=== PATIENT | male | born 2000 | race African-American/Black ===

== ENCOUNTER 2019-08-19 13:20 | Inpatient (IN) | payer SELFPAY ==
[~2019-08-19] VITALS: Ht 182.9 cm; Wt 106.0 kg
[2019-08-19 14:11] LABS: COLLECTION METHOD CLEAN CATCH
[2019-08-19 14:14] LABS: HEMOGLOBIN 14.5 g/dl (12.5-16.1); MEAN CELL VOLUME 76 fl (80.0-95.0); MEAN CORPUSCULAR HEMOGLOBIN 24 pg (26.0-32.0); MEAN CORPUSCULAR HGB CONC 32 g/dl (33.0-37.0); MEAN PLATELET VOLUME 8.7 fl (7.4-10.4); PLATELET COUNT 289 K/mm3 (130-400); RED BLOOD COUNT 6.08 M/mm3 (4.20-5.60); REDCELL DISTRIBUTION WIDTH-CV 13.2 % (11.5-14.5)
[2019-08-19 14:20] LABS: MUCOUS Present /lpf; PH 6 (5-8); SQUAMOUS EPITHELIAL 0-2 /hpf; URINE APPEARANCE Clear; URINE BACTERIA None Seen /hpf; URINE BILIRUBIN Negative (NEGATIVE); URINE BLOOD Negative (NEGATIVE); URINE COLOR Yellow; URINE GLUCOSE Negative (NEGATIVE); URINE KETONE Trace (NEGATIVE); URINE LEUKOCYTE ESTERASE Negative (NEGATIVE); URINE NITRATE Negative (NEGATIVE); URINE PROTEIN(semi-quant) 2+ (NEGATIVE); URINE RBC 0-2 /hpf; URINE UROBILINOGEN >=4.0 mg/dL (NEGATIVE)
[2019-08-19 14:31] LABS: ALANINE AMINOTRANSFERASE < 6 U/L (21-72); ALBUMIN 4.2 gm/dL (3.5-5.0); ALKALINE PHOSPHATASE 55 U/L (50-136); ANION GAP 10 mmol/L (7-16); AST,SGOT 22 U/L (15-37); BAND 1 % (0-10); BILIRUBIN,TOTAL 0.9 mg/dL (0.0-1.0); BLOOD UREA NITROGEN 8 mg/dL (9-20); CALCIUM 8.9 mg/dL (8.4-10.2); CARBON DIOXIDE 27 mmol/L (22-30); CHLORIDE 95 mmol/L (98-107); CREATININE, serum 0.88 (0.66-1.25); GLUCOSE 140 mg/dL (74-106); LIPASE 38 U/L (23-300); LYMPHOCYTE 7 % (20.0-51.0); NEUTROPHILS 84 % (42.0-75.2); PLATELET ESTIMATE NORMAL (NORMAL); POTASSIUM 3.2 mmol/L (3.4-5.0); SODIUM 132 mmol/L (137-145); TOTAL PROTEIN 7.9 gm/dL (6.4-8.2)
[2019-08-19 14:32] LABS: HYPOCHROMIA 1+; MICROCYTOSIS 1+
[2019-08-19 14:46] LABS: C-REACTIVE PROTEIN 16.1 mg/dL (0.0-0.9)
[2019-08-19 17:34] VITALS: BP 126/56; PULSE 102; TEMP 99.4
--- NOTE | 2019-08-19 18:00 | NUR ---
Denies pain. NPO for surgery. IV fluids and IV potassium infusing. Family here.
--- NOTE | 2019-08-19 22:40 | NUR ---
To room 350 via bed from PACU. Denies nausea. C/O pain to abdomen rating it 6/10-right quadrants-described as throbbing. Dilaudid 0.25mg given IV push per dr order. Fresh ice water given. Plan of care discussed for calling for assistance up out of bed when ready to void. Verbalizes understanding. Post-op vitals initiated. Noted to have a temp of 101.0. Will monitor closely. IV to right AC with NS@125ml/hr. Potassium 10meq @100ml/hr. Mom at bedside. Deny questions and concerns. Call light in reach. Bed in low/wheels locked. Will monitor.
[2019-08-19 22:45] VITALS: BP 128/77; PULSE 87; TEMP 100.7
[2019-08-19 23:00] VITALS: BP 124/67; PULSE 84
[2019-08-19 23:15] VITALS: BP 118/68; PULSE 77; TEMP 100.1
[2019-08-19 23:30] VITALS: BP 129/70; PULSE 75
[2019-08-20] VITALS (9 sets, daily range): BP systolic 112–137; BP diastolic 55–74; PULSE 68–82; TEMP 97.9–99.8
--- NOTE | 2019-08-20 03:19 | NUR ---
C/O pain to abdomen-right quadrants-rating 5/10. Described as constant throbbing. Dilaudid 0.25m,g given IV per dr order. Denies nausea. Tolerating clear liquids. Voiding. Afebrile. Mother at bedside. Will monitor.
--- NOTE | 2019-08-20 06:00 | NUR ---
Rested well this shift. Has remained afebrile. ELICEO drain with 50mls serosang drainage. Denies needs. Mom at bedside. Will monitor.
[2019-08-20 07:37] LABS: BASO % 0.1 % (0.0-2.0); GRAN # 15.5 (1.4-6.5); LYMPH # 0.6 (1.2-3.4); LYMPH % 3.7 % (20.0-51.0); MEAN CELL VOLUME 75 fl (80.0-95.0); MEAN CORPUSCULAR HEMOGLOBIN 24 pg (26.0-32.0); MEAN CORPUSCULAR HGB CONC 32 g/dl (33.0-37.0); MEAN PLATELET VOLUME 9.8 fl (7.4-10.4); MONO # 1.2 (0.1-0.6); MONO % 6.6 % (1.7-9.3); PLATELET COUNT 241 K/mm3 (130-400); RED BLOOD COUNT 5.17 M/mm3 (4.20-5.60); REDCELL DISTRIBUTION WIDTH-CV 13.3 % (11.5-14.5)
[2019-08-20 07:41] LABS: HEMOGLOBIN 12.4 g/dl (12.5-16.1)
[2019-08-20 07:45] LABS: ALBUMIN 3.3 gm/dL (3.5-5.0); BILIRUBIN,TOTAL 1.1 mg/dL (0.0-1.0); CALCIUM 8.4 mg/dL (8.4-10.2); CREATININE, serum 0.77 (0.66-1.25); POTASSIUM 3.8 mmol/L (3.4-5.0); TOTAL PROTEIN 6.5 gm/dL (6.4-8.2)
--- NOTE | 2019-08-20 08:30 | NUR ---
Afebrile. Denies pain. Taking clear liquids well. Serosanguinous drainage from ELICEO drain. No bowel sounds heard per auscultation. Denies flatus. Family here.
--- NOTE | 2019-08-20 10:15 | NUR ---
Patient lives with roommates in his [place], [place] apartment and plans to return home with support from his friends and family as needed. Patient's mother (Lashonda #[phone]) lives in [place], [place] and is supportive of patient's needs. 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 Patient is independent with daily living activities, he has no primary care physician but visits [facility] as needed for medical and pharmacy needs, and he does not have advance directives for healthcare completed at this time. No further needs and hospice social worker will follow as needed.
--- NOTE | 2019-08-20 12:00 | NUR ---
Sitting up in chair. Using incentive spirometer. Medicated with Percocet for c/o incisional pain.
[2019-08-20] MEDS ORDERED: PERCOCET 325 MG1 TA2 PO (14:34)
[2019-08-20] MEDS ORDERED: AMOXICILLIN 8751 TAB PO (14:35)
[2019-08-20] MEDS ORDERED: MOTRIN 600600 MG/TAB PO (14:35)
--- NOTE | 2019-08-20 18:00 | NUR ---
Afebrile. No c/o pain. Taking food without nausea. No flatus yet. Has ambulated in halls with family.
--- NOTE | 2019-08-20 20:00 | NUR ---
Report received. Assumed care for retail shift manager. A&Ox3. Assessment complete. VS stable. Denies N/V/pain. States he does feel as if there is a lot of pressure on the right side of the abdomen. Denies passing gas. Bowel sounds absent. Discussed importance of ambulation due to ileus. Verbalizes understanding. Has been belching more this evening. Mom at bedside with plans to ambulate now. Will continue to monitor.
[2019-08-21] VITALS (7 sets, daily range): BP systolic 125–136; BP diastolic 59–71; PULSE 59–77; TEMP 97.7–98.7
[2019-08-21 08:30] LABS: BASO % 0.1 % (0.0-2.0); GRAN # 13.2 (1.4-6.5); GRAN % 83.9 % (42.2-75.2); HEMATOCRIT 37.9 % (36.0-47.0); HEMOGLOBIN 12.2 g/dl (12.5-16.1); LYMPH # 1.3 (1.2-3.4); LYMPH % 8.2 % (20.0-51.0); MEAN CELL VOLUME 75 fl (80.0-95.0); MEAN CORPUSCULAR HEMOGLOBIN 24 pg (26.0-32.0); MEAN CORPUSCULAR HGB CONC 32 g/dl (33.0-37.0); MEAN PLATELET VOLUME 9.4 fl (7.4-10.4); MONO # 1.2 (0.1-0.6); MONO % 7.4 % (1.7-9.3); PLATELET COUNT 323 K/mm3 (130-400); RED BLOOD COUNT 5.08 M/mm3 (4.20-5.60); REDCELL DISTRIBUTION WIDTH-CV 13.6 % (11.5-14.5)
[2019-08-21 08:41] LABS: ALBUMIN 3.3 gm/dL (3.5-5.0); BILIRUBIN,TOTAL 0.6 mg/dL (0.0-1.0); CALCIUM 8.6 mg/dL (8.4-10.2); CREATININE, serum 0.72 (0.66-1.25); POTASSIUM 3.8 mmol/L (3.4-5.0); TOTAL PROTEIN 6.8 gm/dL (6.4-8.2)
--- NOTE | 2019-08-21 10:39 | NUR ---
Patient alert and oriented, answers questions appropriately. See assessment. Abdomen soft, non tender, non distended. Bowel sounds active x4 quads. +Flatus. Abdomen lap sites with edges well approximated, no redness or drainage noted. ELICEO drain site with no redness or drainage noted. ELICEO tubing stripped, immediate return of sanguinous drainaged noted, bulb emptied and compressed. C/o pain to drain site. Post op exercises reviewed. No other c/o at this time.
--- NOTE | 2019-08-21 19:40 | NUR ---
Pt. sitting up in chair with mother at bedside. Pt. is A&OX3, assessment complete. INT to rt. ac patent. Abd. lap sites X3, well approximated, KEVIN. ELICEO drain to abd. with serous drainage noted. Pt. reports pain at a 5 on pain scale, will give pain meds per orders. Pt. denies further needs, call light within reach.
--- NOTE | 2019-08-21 22:00 | NUR ---
Pt. reports that he has passed gas.
[2019-08-22 04:45] VITALS: BP 117/64; PULSE 70; TEMP 97.9
[2019-08-22 07:21] VITALS: BP 126/68; PULSE 71; TEMP 98.7
--- NOTE | 2019-08-22 09:09 | NUR ---
Patient alert and oriented, answers questions appropraitely. See assessment. Abdomen soft, non tender, non distended. Bowel sounds active x4 quads. +Flatus. Abdomen lap sites with edges well approximated, no redness or drainage noted. ELICEO with bulb compressed and large amount of serous drainage noted. No c/o at this time.
[2019-08-22 11:06] VITALS: BP 122/63; PULSE 60; TEMP 99.2
[2019-08-22 14:24] LABS: CALCIUM 8.6 mg/dL (8.4-10.2); CREATININE, serum 0.77 (0.66-1.25); POTASSIUM 3.6 mmol/L (3.4-5.0)
--- NOTE | 2019-08-22 15:44 | NUR ---
Carpenter Repairer met with patient and patient's mom, Lashonda about need for medication voucher. Lashonda advised that neither she or patient have health insurance. Lashonda states she does not have money until she gets paid tomorrow. SW contacted [facility] to nunes needed prescriptions and completed medication voucher. Patient signed and SW explained that voucher was for one time use. SW faxed copy of voucher and prescriptions to [facility] and provided originals to patient. No additional concerns at this time.
--- NOTE | 2019-08-22 15:54 | NUR ---
Discharge instructions reviewed with patient and family, verbalized understanding. Discharged via wheelchair to auto/home with family at 1545.
== END 2019-08-22 15:45 | disposition home or self-care (01) | DRG 339 ==
LOC: COL.ER 13:20 → SURG 14:55
PROVIDERS: Emergency Medicine; ADMIT Surgery
PROC: 0DTJ4ZZ Resection of Appendix, Percutaneous Endoscopic Approach (ICD-10-PCS; principal; 2019-08-19 17:00)
DX: K35.32 Acute appendicitis with perforation, localized peritonitis, and gangrene, without abscess (principal); K56.7 Ileus, unspecified; Z74.01 Bed confinement status
CPT/HCPCS: A9284; J1100; J1170; J1885; J2405; J2543; J2704; J3480; J7030; J7120; Q9967